=== PATIENT | female | born 1960 | race Caucasian/White ===

== ENCOUNTER → 2016-07-30 | Outpatient (CLI) | payer OTHER ==
--- NOTE | 2016-07-30 17:37 | DI ---
INDICATION: ITS.REASON: DX TESTING PROCEDURE: CHEST 2-VIEWS UPRIGHT (PA \T\ LAT) Encounter: Initial COMPARISON: None FINDINGS: Lungs are mildly hyperinflated with some interstitial prominence. No focal consolidative pneumonia. There is no pleural effusion or pneumothorax. The heart size, mediastinal contours and pulmonary vascularity are within normal limits. Two adjacent chronic appearing upper to mid thoracic compression deformities. IMPRESSION: Hyperinflation and findings suggesting COPD. .
--- NOTE | 2016-07-31 14:32 | ECHOF ---
DATE OF PROCEDURE 07/30/2016 This is a two-dimensional echo with spectral Doppler, color-flow and M-mode. It was obtained in a patient with hypertension. Left atrial dimension is normal. Left ventricle end-diastolic dimension is normal. Left ventricle wall thickness is mildly increased. LV systolic function is normal with ejection fraction of about 60%. Right atrium is normal. Right ventricle is normal. Aortic root dimension is normal. Mitral valve is morphologically normal with trace of mitral regurgitation. Aortic valve is a trileaflet structure with no stenosis. Mild aortic insufficiency is present. Tricuspid valve shows mild tricuspid regurgitation with normal estimated pulmonary artery systolic pressure of 27. Pulmonary valve shows trace of pulmonary insufficiency. There is no pericardial effusion. IMPRESSION 1. Normal LV systolic function with ejection fraction of 60%. 2. Mild left ventricular hypertrophy. 3. Trace of mitral regurgitation. 4. Mild aortic insufficiency. 5. Mild tricuspid regurgitation with normal estimated pulmonary artery systolic pressure of 27. 6. Trace of pulmonary insufficiency. MTDD
== END ==
LOC: IMA 16:29
DX: Z02.89 Encounter for other administrative examinations (principal)
CPT/HCPCS: 93306